=== PATIENT | male | born 1940 | race Caucasian/White ===

== ENCOUNTER 2021-08-14 09:25 | Inpatient (IN) ==
[2021-08-14] MEDS ORDERED: Nitroglycerin 0.4 MG TAB.SUBL SL PRN (18:44)
[2021-08-14] MEDS ORDERED: *HR* Dextrose 50 % in Water (Syg) 50 ML SYRINGE IVP PRN (21:15)
[2021-08-14] MEDS ORDERED: D5% in Water 1,000 ML IVC PRN (21:15)
[2021-08-14] MEDS ORDERED: Dextrose Gel 15 GM/37.5 ML TUBE PO PRN ×2 (21:15)
[2021-08-14] MEDS ORDERED: Insulin DETEMIR 100 UNIT/ML per UNIT SUBQ ONE (21:30)
[2021-08-14] MEDS: Insulin LISPRO 300 UNITS/3 ML VIAL SUBQ SCH (21:45)
[2021-08-15 05:40] LABS: Basophils # 0.1 K/mcL (0.0-0.2); Basophils % 0.4 %; Eosinophils # 0.5 K/mcL (0.0-0.6); Eosinophils % 4.1 %; Hematocrit 27.6 % (37.5-50.1); Hemoglobin 8.7 g/dL (12.9-16.9); Immature Granulocytes % 1.5 % (0-4); Lymphocytes # 1.2 K/mcL (0.6-4.6); Lymphocytes % 9.1 %; Mean Corpuscular HGB Conc 31.5 g/dL (31.6-35.5); Mean Corpuscular Hemoglobin 30.3 pg (28.0-33.3); Mean Corpuscular Volume 96.2 fL (83.0-100.0); Mean Platelet Volume 10.3 fL (9.4-12.4); Monocytes # 1.4 K/mcL (0.0-1.3); Platelet Count 516 K/mcL (140-400); Red Blood Count 2.87 M/mcL (4.19-5.50); Red Cell Distribution Width 15.1 % (11.5-14.5); Segmented Neutrophils % 73.9 %; White Blood Count 12.8 K/mcL (4.3-11.1)
[2021-08-15 05:42] LABS: Neutrophils # 9.5 K/mcL (1.6-8.9)
[2021-08-15 05:50] LABS: Calcium 9.1 mg/dL (8.6-10.3); Potassium 4.9 mEq/L (3.5-5.1)
[2021-08-15] MEDS: *HR* Enoxaparin 40 MG/0.4 ML SYRINGE SQ SCH (06:03)
[2021-08-15] MEDS ORDERED: *HR* Metformin 500 MG TABLET PO SCH (08:00)
[2021-08-15] MEDS: Insulin LISPRO 300 UNITS/3 ML VIAL SUBQ SCH ×4 (08:22→21:05)
[2021-08-15] MEDS: Losartan/HCTZ 50-12.5 TABLET PO SCH (08:32)
[2021-08-15] MEDS: GlipiZIDE 5 MG TABLET PO SCH ×2 (08:32→17:14)
[2021-08-15] MEDS: Aspirin 81 MG TAB.CHEW PO SCH (08:33)
[2021-08-15] MEDS: Fenofibrate 54 MG TABLET PO SCH (08:33)
[2021-08-15] MEDS: Isosorbide MONOnitrate (24 HR) 30 MG TAB.ER.24H PO SCH (08:33)
[2021-08-15] MEDS: Insulin DETEMIR 100 UNIT/ML X5UNITS SUBQ SCH ×2 (08:34→21:16)
[2021-08-15] MEDS: Amoxicillin/Clavulanate 500 MG TABLET PO SCH ×2 (13:31→21:14)
[2021-08-15] MEDS: *HR* Metformin 500 MG TABLET PO SCH (17:13)
[2021-08-16] MEDS: Isosorbide MONOnitrate (24 HR) 30 MG TAB.ER.24H PO SCH (07:46)
[2021-08-16] MEDS: *HR* Metformin 500 MG TABLET PO SCH ×2 (07:47→16:43)
[2021-08-16] MEDS: GlipiZIDE 5 MG TABLET PO SCH ×2 (07:47→16:44)
[2021-08-16] MEDS: Amoxicillin/Clavulanate 500 MG TABLET PO SCH ×2 (07:47→16:43)
[2021-08-16] MEDS: Aspirin 81 MG TAB.CHEW PO SCH (07:47)
[2021-08-16] MEDS: Losartan/HCTZ 50-12.5 TABLET PO SCH (07:47)
[2021-08-16] MEDS: Fenofibrate 54 MG TABLET PO SCH (07:48)
[2021-08-16] MEDS: *HR* Enoxaparin 40 MG/0.4 ML SYRINGE SQ SCH ×2 (07:48→12:44)
[2021-08-16] MEDS: Insulin LISPRO 300 UNITS/3 ML VIAL SUBQ SCH ×4 (07:49→23:04)
[2021-08-16] MEDS: Insulin DETEMIR 100 UNIT/ML X5UNITS SUBQ SCH ×2 (08:02→23:05)
[2021-08-16] MEDS ORDERED: *HR* LORazepam 2 MG/ML VIAL IVP PRN (13:27)
[2021-08-16] MEDS ORDERED: cefTRIAXone 1,000 MG in Water for inj. (sterile) 10 ML IVP SCH (13:28)
[2021-08-16] MEDS ORDERED: Azithromycin 500 MG in 0.9 % Sodium Chloride 250 ML IVPB SCH (14:00)
[2021-08-17] MEDS: *HR* Enoxaparin 40 MG/0.4 ML SYRINGE SQ SCH (05:19)
[2021-08-17] MEDS: GlipiZIDE 5 MG TABLET PO SCH ×2 (07:20→16:16)
[2021-08-17] MEDS: Insulin LISPRO 300 UNITS/3 ML VIAL SUBQ SCH ×4 (07:20→19:39)
[2021-08-17] MEDS: Aspirin 81 MG TAB.CHEW PO SCH (07:20)
[2021-08-17] MEDS: Isosorbide MONOnitrate (24 HR) 30 MG TAB.ER.24H PO SCH (07:21)
[2021-08-17] MEDS: Fenofibrate 54 MG TABLET PO SCH (07:21)
[2021-08-17] MEDS: Losartan/HCTZ 50-12.5 TABLET PO SCH (07:21)
[2021-08-17] MEDS: *HR* Metformin 500 MG TABLET PO SCH ×2 (07:22→16:16)
[2021-08-17] MEDS: Insulin DETEMIR 100 UNIT/ML X5UNITS SUBQ SCH ×2 (07:27→19:43)
[2021-08-17 07:38] LABS: Hemoglobin 8.4 g/dL (12.9-16.9); Mean Corpuscular HGB Conc 31.1 g/dL (31.6-35.5); Mean Corpuscular Hemoglobin 30.3 pg (28.0-33.3); Mean Corpuscular Volume 97.5 fL (83.0-100.0); Platelet Count 507 K/mcL (140-400); Red Blood Count 2.77 M/mcL (4.19-5.50); Red Cell Distribution Width 15.6 % (11.5-14.5); White Blood Count 9.9 K/mcL (4.3-11.1)
[2021-08-17 07:57] LABS: Albumin 3.2 g/dL (3.5-5.7); Albumin/Globulin Ratio 1.1 (1.1-2.2); Bilirubin,Total 0.8 mg/dL (0.3-1.0); Calcium 8.8 mg/dL (8.6-10.3); Globulin 2.8 g/dL (2.4-3.5); Magnesium 1.8 mg/dL (1.6-2.6); Potassium 4.1 mEq/L (3.5-5.1)
[2021-08-17] MEDS: Doxycycline 100 MG CAPSULE PO SCH ×2 (16:16→20:55)
[2021-08-17] MEDS: Amoxicillin/Clavulanate 500 MG TABLET PO SCH ×2 (17:54→17:56)
[2021-08-17] MEDS: Melatonin 3 MG TABLET PO PRN (22:00)
[2021-08-18] MEDS: Insulin LISPRO 300 UNITS/3 ML VIAL SUBQ SCH ×4 (08:53→22:44)
[2021-08-18] MEDS: *HR* Metformin 500 MG TABLET PO SCH (08:56)
[2021-08-18] MEDS: *HR* Enoxaparin 40 MG/0.4 ML SYRINGE SQ SCH ×2 (08:58→10:47)
[2021-08-18] MEDS: Insulin DETEMIR 100 UNIT/ML X5UNITS SUBQ SCH ×2 (08:59→22:47)
[2021-08-18] MEDS: Losartan/HCTZ 50-12.5 TABLET PO SCH (08:59)
[2021-08-18] MEDS: Doxycycline 100 MG CAPSULE PO SCH ×2 (08:59→22:43)
[2021-08-18] MEDS: Fenofibrate 54 MG TABLET PO SCH (09:00)
[2021-08-18] MEDS: Isosorbide MONOnitrate (24 HR) 30 MG TAB.ER.24H PO SCH (09:01)
[2021-08-18] MEDS: GlipiZIDE 5 MG TABLET PO SCH ×2 (09:01→16:47)
[2021-08-18] MEDS: Aspirin 81 MG TAB.CHEW PO SCH (09:01)
[2021-08-18] MEDS: Melatonin 3 MG TABLET PO PRN (22:44)
[2021-08-19] MEDS: *HR* Enoxaparin 40 MG/0.4 ML SYRINGE SQ SCH (05:59)
[2021-08-19] MEDS: Doxycycline 100 MG CAPSULE PO SCH ×2 (07:51→20:13)
[2021-08-19] MEDS: Aspirin 81 MG TAB.CHEW PO SCH (07:51)
[2021-08-19] MEDS: Fenofibrate 54 MG TABLET PO SCH (07:52)
[2021-08-19] MEDS: GlipiZIDE 5 MG TABLET PO SCH ×2 (07:52→16:57)
[2021-08-19] MEDS: Losartan/HCTZ 50-12.5 TABLET PO SCH (07:52)
[2021-08-19] MEDS: Isosorbide MONOnitrate (24 HR) 30 MG TAB.ER.24H PO SCH (07:52)
[2021-08-19] MEDS: Insulin LISPRO 300 UNITS/3 ML VIAL SUBQ SCH ×4 (07:53→20:14)
[2021-08-19] MEDS: Insulin DETEMIR 100 UNIT/ML X5UNITS SUBQ SCH ×2 (08:00→20:13)
[2021-08-19] MEDS: Melatonin 3 MG TABLET PO PRN (20:13)
[2021-08-20 05:19] LABS: Hematocrit 29.5 % (37.5-50.1); Hemoglobin 9.2 g/dL (12.9-16.9); Mean Corpuscular HGB Conc 31.2 g/dL (31.6-35.5); Mean Corpuscular Hemoglobin 29.9 pg (28.0-33.3); Mean Corpuscular Volume 95.8 fL (83.0-100.0); Mean Platelet Volume 9.6 fL (9.4-12.4); Platelet Count 612 K/mcL (140-400); Red Blood Count 3.08 M/mcL (4.19-5.50); Red Cell Distribution Width 15.6 % (11.5-14.5); White Blood Count 9.8 K/mcL (4.3-11.1)
[2021-08-20 05:30] LABS: Albumin 3.5 g/dL (3.5-5.7); Albumin/Globulin Ratio 1.2 (1.1-2.2); Bilirubin,Total 0.6 mg/dL (0.3-1.0); Calcium 9.1 mg/dL (8.6-10.3); Globulin 2.9 g/dL (2.4-3.5); Magnesium 2.1 mg/dL (1.6-2.6); Potassium 4.5 mEq/L (3.5-5.1); Total Protein 6.4 g/dL (6.4-8.9)
[2021-08-20] MEDS: *HR* Enoxaparin 40 MG/0.4 ML SYRINGE SQ SCH (06:04)
[2021-08-20] MEDS: Insulin LISPRO 300 UNITS/3 ML VIAL SUBQ SCH ×4 (08:24→19:53)
[2021-08-20] MEDS: Losartan/HCTZ 50-12.5 TABLET PO SCH (08:24)
[2021-08-20] MEDS: Doxycycline 100 MG CAPSULE PO SCH ×2 (08:25→19:53)
[2021-08-20] MEDS: GlipiZIDE 5 MG TABLET PO SCH ×2 (08:25→16:19)
[2021-08-20] MEDS: Isosorbide MONOnitrate (24 HR) 30 MG TAB.ER.24H PO SCH (08:25)
[2021-08-20] MEDS: Aspirin 81 MG TAB.CHEW PO SCH (08:26)
[2021-08-20] MEDS: Fenofibrate 54 MG TABLET PO SCH (08:26)
[2021-08-20] MEDS: Insulin DETEMIR 100 UNIT/ML X5UNITS SUBQ SCH ×2 (08:27→19:53)
[2021-08-20] MEDS: Melatonin 3 MG TABLET PO PRN (19:54)
[2021-08-21] MEDS: *HR* Enoxaparin 40 MG/0.4 ML SYRINGE SQ SCH (06:00)
[2021-08-21] MEDS: Insulin DETEMIR 100 UNIT/ML X5UNITS SUBQ SCH ×2 (07:14→20:06)
[2021-08-21] MEDS: Insulin LISPRO 300 UNITS/3 ML VIAL SUBQ SCH ×4 (07:14→20:06)
[2021-08-21] MEDS: Aspirin 81 MG TAB.CHEW PO SCH (08:13)
[2021-08-21] MEDS: Losartan/HCTZ 50-12.5 TABLET PO SCH (08:13)
[2021-08-21] MEDS: Doxycycline 100 MG CAPSULE PO SCH ×2 (08:14→20:05)
[2021-08-21] MEDS: GlipiZIDE 5 MG TABLET PO SCH ×2 (08:14→16:21)
[2021-08-21] MEDS: Isosorbide MONOnitrate (24 HR) 30 MG TAB.ER.24H PO SCH (08:14)
[2021-08-21] MEDS: Fenofibrate 54 MG TABLET PO SCH (08:14)
[2021-08-21] MEDS: Melatonin 3 MG TABLET PO PRN (20:05)
[2021-08-22] MEDS: *HR* Enoxaparin 40 MG/0.4 ML SYRINGE SQ SCH (05:38)
[2021-08-22] MEDS: Insulin LISPRO 300 UNITS/3 ML VIAL SUBQ SCH ×4 (07:34→21:24)
[2021-08-22] MEDS: Aspirin 81 MG TAB.CHEW PO SCH (08:23)
[2021-08-22] MEDS: Insulin DETEMIR 100 UNIT/ML X5UNITS SUBQ SCH ×2 (08:23→21:21)
[2021-08-22] MEDS: Fenofibrate 54 MG TABLET PO SCH (08:23)
[2021-08-22] MEDS: Losartan/HCTZ 50-12.5 TABLET PO SCH (08:23)
[2021-08-22] MEDS: Isosorbide MONOnitrate (24 HR) 30 MG TAB.ER.24H PO SCH (08:23)
[2021-08-22] MEDS: Doxycycline 100 MG CAPSULE PO SCH ×2 (08:23→21:23)
[2021-08-22] MEDS: GlipiZIDE 5 MG TABLET PO SCH ×2 (08:24→16:52)
[2021-08-22] MEDS: Melatonin 3 MG TABLET PO PRN (21:23)
[2021-08-23] MEDS: *HR* Enoxaparin 40 MG/0.4 ML SYRINGE SQ SCH (05:04)
[2021-08-23 07:32] VITALS: BP 153/76; PULSE 78; RESP 16; TEMP 98.4; O2SAT 97
[2021-08-23] MEDS: Insulin LISPRO 300 UNITS/3 ML VIAL SUBQ SCH ×2 (08:17→12:47)
[2021-08-23] MEDS: Fenofibrate 54 MG TABLET PO SCH (08:18)
[2021-08-23] MEDS: Isosorbide MONOnitrate (24 HR) 30 MG TAB.ER.24H PO SCH (08:18)
[2021-08-23] MEDS: Losartan/HCTZ 50-12.5 TABLET PO SCH (08:18)
[2021-08-23] MEDS: Doxycycline 100 MG CAPSULE PO SCH (08:18)
[2021-08-23] MEDS: GlipiZIDE 5 MG TABLET PO SCH (08:19)
[2021-08-23] MEDS: Aspirin 81 MG TAB.CHEW PO SCH (08:19)
[2021-08-23] MEDS: Insulin DETEMIR 100 UNIT/ML X5UNITS SUBQ SCH (08:26)
[2021-08-23 10:42] LABS: Basophils % 0.5 %; Eosinophils # 0.5 K/mcL (0.0-0.6); Eosinophils % 6.6 %; Hematocrit 29.6 % (37.5-50.1); Hemoglobin 9.2 g/dL (12.9-16.9); Immature Granulocytes % 0.5 % (0-4); Lymphocytes # 0.8 K/mcL (0.6-4.6); Mean Corpuscular HGB Conc 31.1 g/dL (31.6-35.5); Mean Corpuscular Hemoglobin 29.6 pg (28.0-33.3); Mean Corpuscular Volume 95.2 fL (83.0-100.0); Mean Platelet Volume 9.4 fL (9.4-12.4); Monocytes # 0.7 K/mcL (0.0-1.3); Monocytes % 8.7 %; Neutrophils # 5.9 K/mcL (1.6-8.9); Platelet Count 531 K/mcL (140-400); Red Blood Count 3.11 M/mcL (4.19-5.50); Red Cell Distribution Width 15.5 % (11.5-14.5); Segmented Neutrophils % 73.7 %
[2021-08-23 10:57] LABS: Potassium 3.9 mEq/L (3.5-5.1)
== END 2021-08-23 16:38 | disposition home health service (06) ==
LOC: INPGRE 18:29
PROVIDERS: ADMIT Family Medicine; ATTEND Family Medicine